=== PATIENT | female | born 1970 | race Caucasian/White ===

== ENCOUNTER → 2016-11-06 | Outpatient (CLI) | payer BC ==
[~2016-11-06] MED LIST: PREDNISONE20 MG PO
== END ==
LOC: MC.RAD 14:16
DX: N60.02 Solitary cyst of left breast (principal); N60.01 Solitary cyst of right breast

== ENCOUNTER → 2017-10-14 | Outpatient (CLI) | payer BC | LOC: MC.RAD 09:35 | DX: Z12.31 Encounter for screening mammogram for malignant neoplasm of breast (principal) ==

== ENCOUNTER → 2020-02-26 | Outpatient (CLI) | payer BC | LOC: MC.RAD 09:59 | DX: Z12.31 Encounter for screening mammogram for malignant neoplasm of breast (principal) ==

== ENCOUNTER 2021-08-25 22:52 | Emergency (ER) | payer BC ==
[~2021-08-25] VITALS: Ht 170.2 cm; Wt 63.6 kg
[2021-08-25 23:01] VITALS: BP 150/92; TEMP 98.5
[2021-08-25] MEDS ORDERED: BUTALBITAL ACET1 CAP PO (23:04)
[2021-08-25] MEDS ORDERED: CRUTCHES MC (23:53)
[2021-08-25] MEDS ORDERED: NORCO 325 MG-51 TAB PO (23:54)
[2021-08-26 00:17] VITALS: PULSE 94
== END 2021-08-26 00:17 | disposition home or self-care (01) ==
LOC: COL.ER 22:52
DX: S93.602A Unspecified sprain of left foot, initial encounter (principal); X50.1XXA Overexertion from prolonged static or awkward postures, initial encounter

== ENCOUNTER → 2021-10-22 | Outpatient (CLI) | payer BC ==
[~2021-10-22] MED LIST changes: +BUTALBITAL ACET1 CAP PO; +CRUTCHES MC; +NORCO 325 MG-51 TAB PO
== END ==
LOC: MC.RAD 09:23
DX: Z12.31 Encounter for screening mammogram for malignant neoplasm of breast (principal)